=== PATIENT | male | born 1990 | race Hispanic/Latino ===

== ENCOUNTER 2021-02-18 08:03 | Emergency (ER) | payer SELFPAY ==
[2021-02-18 09:11] LABS: Absolute Lymphocytes (CBC) 0.9 K/uL (0.7-4.9); Basophils % 0.4 % (0-1.3); Hematocrit 46.9 % (39.6-49.0); Lymphocytes % 11.9 % (15.3-44.8); MPV 7.6 fL (7.6-11.3); RBC Red Blood Cell Count 5.21 M/uL (4.33-5.43)
[2021-02-18] MEDS ORDERED: Ringers Lactate 1,000 ML IV ONE (09:11)
[2021-02-18] MEDS ORDERED: MECLIZINE HCL 12.5 MG TAB ONE (09:12)
[2021-02-18] MEDS ORDERED: ONDANSETRON 4 MG/2 ML VIAL ONE (09:12)
[2021-02-18 09:31] LABS: ALT/SGPT 37 U/L (12-78); AST/SGOT 11 U/L (15-37); Albumin 3.9 g/dL (3.4-5.0); Alkaline Phosphatase 89 U/L (45-117); BUN Blood Urea Nitrogen 11 mg/dL (7-18); Bicarbonate 29 mmol/L (21-32); Bilirubin Direct 0.2 mg/dL (0-0.2); Bilirubin Total 0.6 mg/dL (0.2-1.0); Creatine Phosphokinase 74 U/L (39-308); Glucose Level 129 mg/dL (74-106); Lipase 62 U/L (73-393); Potassium 3.9 mmol/L (3.5-5.1); Protein, Total 7.3 g/dL (6.4-8.2); Sodium Level 141 mmol/L (136-145)
--- NOTE | 2021-02-18 10:21 | ER ---
Nurse's Notes [facility] Name: Jose Cruz Age: 30 yrs Sex: Male : 1990 Arrival Date: 02/18/2021 Time: 08:05 Bed 8 Private MD: Diagnosis: Other peripheral vertigo Presentation: 02/18 08:17 Chief complaint: Patient states: im sick, 3 days ago. at work i started feeling like i tw2 was going to throw up and nauseous. no diarrhea. denies cough fever congestion. PA from work. we thought it was heat exhaustion. he is just weak. vs stable. he stayed home today but called in to tell us he is weak. Coronavirus screen: fatigue, nausea, vomiting. Client presents with at least one sign or symptom that may indicate coronavirus-19. Standard/surgical mask placed on the client. Provider contacted for isolation considerations. Ebola Screen: Patient denies travel to an Ebola-affected area in the 21 days before illness onset. Initial Sepsis Screen: Does the patient meet any 2 criteria? No. Patient's initial sepsis screen is negative. Does the patient have a suspected source of infection? No. Patient's initial sepsis screen is negative. Risk Assessment: Do you want to hurt yourself or someone else? Patient reports no desire to harm self or others. Onset of symptoms was February 18, 2021. 08:17 Method Of Arrival: Wheelchair tw2 08:17 Acuity: SHAKILA 3 tw2 Triage Assessment: 08:20 The onset of the patients symptoms was more than six hours ago. General: Appears ill, tw2 Behavior is cooperative, appropriate for age, quiet. Pain: Denies pain. Neuro: Reports dizziness. GI: Reports nausea, vomiting. Historical: - Allergies: 08:21 No Known Allergies; tw2 - Home Meds: 08:21 None [Active]; tw2 - PMHx: 08:21 None; tw2 - PSHx: 08:21 None; tw2 - Immunization history:: Client reports having NOT received the Covid vaccine. - Social history:: Smoking status: Patient denies any tobacco usage or history of. Patient uses alcohol, on a daily basis. Screenin:26 Abuse screen: Denies threats or abuse. Nutritional screening: No deficits noted. tw2 Tuberculosis screening: No symptoms or risk factors identified. Fall Risk Secondary diagnosis (15 points) weak for 3 days and dizziness reported. Assessment: 09:02 General: Appears in no apparent distress. Behavior is calm, cooperative. Pain: Pain hb currently is 2 out of 10 on a pain scale. Neuro: Level of Consciousness is awake, alert, obeys commands, Oriented to person, place, time, situation. Cardiovascular: Patient's skin is warm and dry. Respiratory: Respiratory effort is even, unlabored, Respiratory pattern is regular, symmetrical. GI: Reports nausea, vomiting. : No signs and/or symptoms were reported regarding the genitourinary system. EENT: No signs and/or symptoms were reported regarding the EENT system. Derm: Skin is pink, warm \T\ dry. Musculoskeletal: No signs and/or symptoms reported regarding the musculoskeletal system. 10:01 Reassessment: Patient appears in no apparent distress at this time. Patient and/or hb family updated on plan of care and expected duration. Pain level reassessed. Patient is alert, oriented x 3, equal unlabored respirations, skin warm/dry/pink. Vital Signs: 08:17 BP 113 / 80; Pulse 54; Resp 17; Temp 97.9(TE); Pulse Ox 100% on R/A; Weight 65.77 kg; tw2 Height 5 ft. 6 in. (167.64 cm) (R); 09:00 BP 121 / 73; Pulse 51; Resp 16; Pulse Ox 100% ; sv 10:01 BP 121 / 70; Pulse 50; Resp 15; Pulse Ox 99% ; hb 08:17 Body Mass Index 23.40 (65.77 kg, 167.64 cm) tw2 ED Course: 08:05 Patient arrived in ED. mr 08:20 Triage completed. tw2 08:20 Arm band placed on. tw2 08:26 Eduardo Jimenez PA is PHCP. jr8 08:26 Dexter Craven MD is Attending Physician. jr8 08:27 Placed in gown. Bed in low position. Call light in reach. Adult w/ patient. tw2 08:47 Nurse Practitioner and/or Physician Crystal Grower to see patient. sv 08:50 CK Sent. mh5 08:51 Pulse ox on. NIBP on. mh5 08:51 Basic Metabolic Panel Sent. mh5 08:51 CBC with Diff Sent. mh5 08:51 Hepatic Function Sent. mh5 08:51 Lipase Sent. [facility] 08:51 Initial lab(s) drawn, by nd, sent to lab. COVID swab sent to lab. Inserted saline lock: [facility] 20 gauge in right antecubital area, using aseptic technique. Blood collected. 09:01 Brittny Miller, RN is Primary Nurse. 10:52 No provider procedures requiring assistance completed. IV discontinued, intact, iw bleeding controlled, No redness/swelling at site. Pressure dressing applied. Administered Medications: 09:01 Drug: Meclizine 50 mg Route: PO; hb 09:30 Follow up: Response: No adverse reaction iw 09:01 Drug: Zofran (Ondansetron) 4 mg Route: IVP; Site: right antecubital; hb 10:00 Follow up: Response: No adverse reaction 09:02 Drug: Ringers - Lactated Ringers Solution 1000 ml Route: IV; Rate: bolus; Site: right hb antecubital; 10:15 Follow up: IV Status: Completed infusion Outcome: 10:21 Discharge ordered by MD. javier 10:52 Discharged to home ambulatory. iw 10:52 Condition: good 10:52 Discharge instructions given to patient, Instructed on discharge instructions, follow up and referral plans. medication usage, Demonstrated understanding of instructions, follow-up care, medications, Prescriptions given X 1. 10:52 Patient left the ED. Signatures: Mercedes Paez RN TERESA Carmen Roas mr Meenakshi Dixon RN TERESA Eduardo Jimenez PA PA Brittny Hammonds RN RN Bella West RN RN [facility] Debra Hernandez [facility] Corrections: (The following items were deleted from the chart) 09:29 08:51 CORONAVIRUS+MR.LAB.BRZ drawn and sent. [facility] EDMS
--- NOTE | 2021-02-18 10:21 | EDPHYS ---
Physician Documentation [facility] Name: Jose Cruz Age: 30 yrs Sex: Male : 1990 Arrival Date: 02/18/2021 Time: 08:05 Bed 8 Private MD: ED Physician Dexter Craven HPI: 02/18 09:53 This 30 yrs old Male presents to ER via Wheelchair with complaints of jr8 Dizziness,Weakness, Vomiting. 10:22 The patient presents with dizziness, vertigo. Onset: The symptoms/episode jr8 began/occurred acutely, 2 day(s) ago. Context: occurred at work. Modifying factors: The symptoms are alleviated by holding head still, lying down, the symptoms are aggravated by movement of head, standing up, changing position. Associated signs and symptoms: Pertinent positives: diaphoresis, nausea. Severity of symptoms: At their worst the symptoms were moderate in the emergency department the symptoms have improved mildly. Patient's baseline: Neuro: alert and fully oriented, Motor: no deficits, Ambulation: walks without assistance, Speech: normal. The patient has not experienced similar symptoms in the past. The patient has been recently seen by a physician: with similar presenting complaints. 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 Was given fluids yesterday but still remains dizzy with motion. Brought in today for further work-up.. Historical: - Allergies: 08:21 No Known Allergies; tw2 - Home Meds: 08:21 None [Active]; tw2 - PMHx: 08:21 None; tw2 - PSHx: 08:21 None; tw2 - Immunization history:: Client reports having NOT received the Covid vaccine. - Social history:: Smoking status: Patient denies any tobacco usage or history of. Patient uses alcohol, on a daily basis. ROS: 10:22 Eyes: Negative for injury, pain, redness, and discharge, ENT: Negative for injury, jr8 pain, and discharge, Neck: Negative for injury, pain, and swelling, Cardiovascular: Negative for chest pain, palpitations, and edema, Respiratory: Negative for shortness of breath, cough, wheezing, and pleuritic chest pain, Back: Negative for injury and pain, MS/Extremity: Negative for injury and deformity, Skin: Negative for injury, rash, and discoloration. 10:22 Abdomen/GI: Positive for nausea, vomiting, Negative for abdominal pain, abdominal cramps, abdominal distension. 10:22 Neuro: Positive for dizziness. Exam: 10:22 Constitutional: This is a well developed, well nourished patient who is awake, alert, jr8 and in no acute distress. Eyes: Pupils equal round and reactive to light, extra-ocular motions intact. Lids and lashes normal. Conjunctiva and sclera are non-icteric and not injected. Cornea within normal limits. Periorbital areas with no swelling, redness, or edema. ENT: Nares patent. No nasal discharge, no septal abnormalities noted. Tympanic membranes are normal and external auditory canals are clear. Oropharynx with no redness, swelling, or masses, exudates, or evidence of obstruction, uvula midline. Mucous membranes moist. Neck: Trachea midline, no thyromegaly or masses palpated, and no cervical lymphadenopathy. Supple, full range of motion without nuchal rigidity, or vertebral point tenderness. No Meningismus. Cardiovascular: Regular rate and rhythm with a normal S1 and S2. No gallops, murmurs, or rubs. Normal PMI, no JVD. No pulse deficits. Respiratory: Lungs have equal breath sounds bilaterally, clear to auscultation and percussion. No rales, rhonchi or wheezes noted. No increased work of breathing, no retractions or nasal flaring. Abdomen/GI: Soft, non-tender, with normal bowel sounds. No distension or tympany. No guarding or rebound. No evidence of tenderness throughout. Back: No spinal tenderness. No costovertebral tenderness. Full range of motion. Skin: Warm, dry with normal turgor. Normal color with no rashes, no lesions, and no evidence of cellulitis. MS/ Extremity: Pulses equal, no cyanosis. Neurovascular intact. Full, normal range of motion. Neuro: Awake and alert, GCS 15, oriented to person, place, time, and situation. Cranial nerves II-XII grossly intact. Motor strength 5/5 in all extremities. Sensory grossly intact. Cerebellar exam normal. Normal gait. Vital Signs: 08:17 BP 113 / 80; Pulse 54; Resp 17; Temp 97.9(TE); Pulse Ox 100% on R/A; Weight 65.77 kg; tw2 Height 5 ft. 6 in. (167.64 cm) (R); 09:00 BP 121 / 73; Pulse 51; Resp 16; Pulse Ox 100% ; sv 10:01 BP 121 / 70; Pulse 50; Resp 15; Pulse Ox 99% ; hb 08:17 Body Mass Index 23.40 (65.77 kg, 167.64 cm) tw2 MDM: 08:26 Patient medically screened. jr8 10:20 Data reviewed: vital signs, nurses notes, lab test result(s). Data interpreted: Pulse jr8 oximetry: on room air is 99 %. Interpretation: normal. Counseling: I had a detailed discussion with the patient and/or guardian regarding: the historical points, exam findings, and any diagnostic results supporting the discharge/admit diagnosis, lab results, the need for outpatient follow up, a family practitioner, to return to the emergency department if symptoms worsen or persist or if there are any questions or concerns that arise at home. Response to treatment: the patient's symptoms have markedly improved after treatment, patient is well hydrated. ED course: Patient no longer feeling as dizzy. No central origins of dizziness found on physical exam. Labs unremarkable. We will have him rest for the next couple days and then follow-up with his work practitioner. Knows to come back if worse.. 02/18 08:31 Order name: Basic Metabolic Panel; Complete Time: :02/18 08:31 Order name: CBC with Diff; Complete Time: 09:25 02/18 08:31 Order name: Hepatic Function; Complete Time: :32 02/18 08:31 Order name: Lipase; Complete Time: :32 02/18 08:31 Order name: CK; Complete Time: 09:02/18 08:31 Order name: IV Saline Lock; Complete Time: 08:51 02/18 08:31 Order name: Labs collected and sent; Complete Time: 08:51 Administered Medications: 09:01 Drug: Meclizine 50 mg Route: PO; hb 09:30 Follow up: Response: No adverse reaction iw 09: Drug: Zofran (Ondansetron) 4 mg Route: IVP; Site: right antecubital; hb 10:00 Follow up: Response: No adverse reaction iw 09:02 Drug: Ringers - Lactated Ringers Solution 1000 ml Route: IV; Rate: bolus; Site: right antecubital; 10:15 Follow up: IV Status: Completed infusion iw Disposition: 15:58 Co-signature as Attending Physician, Dexter Craven MD I agree with the assessment and yoli plan of care. Disposition Summary: 02/18/21 10:21 Discharge Ordered Location: Home jr8 Problem: new jr8 Symptoms: have improved jr8 Condition: Stable jr8 Diagnosis - Other peripheral vertigo jr8 Followup: jr8 - With: Private Physician - When: 1 - 2 days - Reason: Recheck today's complaints, Continuance of care, Re-evaluation by your physician Discharge Instructions: - Discharge Summary Sheet jr8 - Vertigo jr8 Forms: - Medication Reconciliation Form jr8 - Thank You Letter jr8 - Antibiotic Education jr8 - Prescription Opioid Use jr8 - Work release form eb Prescriptions: - Zofran 4 mg Oral Tablet - take 1 tablet by ORAL route every 12 hours As needed; 20 tablet; Refills: 0, jr8 Product Selection Permitted Signatures: Dispatcher [employer] Mercedes Kwon RN RN Dexter Craven MD MD cha Roszak, Josh, JAE PA jr8 Brittny Miller RN RN Bella West RN RN tw2 Meenakshi Dixon RN iw Corrections: (The following items were deleted from the chart) 09:29 08:31 CORONAVIRUS+ ordered. [facility] EDMS
[2021-02-18 11:01] VITALS: TEMP 97.9
[2021-02-18 11:05] VITALS: BP 121/70; O2SAT 99
== END 2021-02-18 10:52 | disposition home or self-care (01) ==
LOC: ER 08:03
DX: H81.399 Other peripheral vertigo, unspecified ear (principal); Z20.822 Contact with and (suspected) exposure to COVID-19
CPT/HCPCS: 36415; 80048; 80076; 82550; 83690; 85025; 96365; 96375; 99284; J2405; J7120; U0003